=== PATIENT | female | born 1965 | race Caucasian/White ===

== ENCOUNTER 2016-10-16 11:45 | Day surgery (SDC) | payer OTHER ==
[~2016-10-16] VITALS: Ht 146.1 cm; Wt 48.5 kg
[~2016-10-16 11:45] MED LIST: 0.9% Sodium Chloride 1,000 ML IV SCH; DICY10CA56 PO; LACT1CAP65 PO; LISI-571 PO; SERT20OR PO; Sodium Chloride LOK Flush 10 mL Syringe IV PRN; ZOLP5TAB6 PO; fentaNYL-PF 50 mCg/mL 2 mL Inj IVPUSH PRN
[2016-10-16] MEDS ORDERED: MILK1CAP3 PO (12:23)
[2016-10-16] MEDS ORDERED: CYAN50008 PO (12:23)
[2016-10-16 12:24] VITALS: BP 152/101; PULSE 73; RESP 16; O2SAT 99
[2016-10-16 13:13] VITALS: BP 126/76; PULSE 71; RESP 14; O2SAT 98
[2016-10-16 13:24] VITALS: BP 110/68; PULSE 60; RESP 14; O2SAT 99
[2016-10-16 13:49] VITALS: BP 120/79; PULSE 60; RESP 14; O2SAT 98
--- NOTE | 2016-10-16 14:32 | ENDO ---
[address] [address] ENDOSCOPY PROCEDURE PATIENT: COLUMBA HILTON : 1965 MR#: [id number] ADMIT: 10/16/2016 JOB ID: [id number] DATE OF SERVICE: 10/16/2016 TYPE OF OPERATION: Colonoscopy with hot snare polypectomy and biopsy. PREOPERATIVE DIAGNOSIS(ES): Diarrhea. POSTOPERATIVE DIAGNOSIS(ES): 1. There was a 5 mm sigmoid polyp, removed by hot snare polypectomy. 2. There was a 3 mm sigmoid polyp, removed by cold biopsy forceps. ANESTHESIA: Fentanyl 100 mcg, Versed 4 mg IV administered. COMPLICATION: None. ESTIMATED BLOOD LOSS: Minimal. DESCRIPTION OF PROCEDURE: After risks and benefits were explained to the patient, informed consent was obtained. After anesthesia administered, colonoscope was then inserted from the rectum to the cecum. Mucosa carefully examined. Prep of the patient was fair. After the procedure was done, the scope withdrawn and the procedure terminated. The scope was advanced from the rectum to the terminal ileum. Mucosa carefully examined. Prep of the patient was fair. After the procedure was done, the scope was withdrawn and the procedure terminated. FINDINGS: Upon inspection of the anus, no masses, hemorrhoids, ulcers, or fissures that were seen. Throughout the entire examination, there was a 5 mm sigmoid polyp, removed by hot snare polypectomy. Also, a 3 mm sigmoid polyp, removed by cold biopsy forceps. Random biopsies taken from the terminal ileum and random colon. Retroflexion showed small internal hemorrhoids. IMPRESSION: 1. Small internal hemorrhoids. 2. A 5 mm sigmoid polyp, removed by hot snare polypectomy. 3. A 3 mm sigmoid polyp, removed by cold biopsy forceps. RECOMMENDATIONS: Await pathology results. Stool softener as needed. If tubular adenoma, then repeat colonoscopy in five years.
--- NOTE | 2016-10-18 16:15 | PATH ---
SURGICAL PATHOLOGY Attending Physician:Jerardo Kramer MD CASE STATUS: Signed Out PATIENT NAME: COLUMBA HILTON PID: [id number] : 1965 DATE COLLECTED:10/16/2016 19:50 SPECIMEN: 1: Ileum, Biopsy 2: Colon, Biopsy 3: Colon, Polyp CLINICAL HISTORY: 1). TERMINAL ILEUM BIOPSY 2). RANDOM COLON BIOPSY 3). SIGMOID COLON POLYPS FINAL DIAGNOSIS: 1. Terminal Ileum, Biopsy: Portions of small bowel mucosa with no diagnostic abnormality. Negative for active inflammation, dysplasia, and malignancy. 2. Random Colon Biopsies: Superficial portions of colorectal mucosa with occasional prominent lymphoid aggregates and no diagnostic abnormality. Negative for active inflammation, granulomas, dysplasia, and malignancy. 3. Sigmoid Colon, Polyps, Biopsies: Portions of tubular adenoma x2; negative for high-grade dysplasia. ICD10: K63.5 GROSS DESCRIPTION: The specimen is received in three formalin filled containers labeled with the patient's name. 1). The specimen is labeled "terminal ileum" and consists of 2 portions of tissue which aggregate to 0.3 x 0.3 x 0.2 CM. The specimen is entirely submitted in cassette 1A. 2). The specimen is labeled "random colon" and consists of 4 portions of tissue which aggregate to 0.5 x 0.4 x 0.2 CM. The specimen is entirely submitted in cassette 2A. 3). The specimen is labeled "sigmoid colon polyps" and consists of 2 portions of tissue which aggregate to 0.2 x 0.2 x 0.2 CM. The specimen is entirely submitted in cassette 3A. 10/16/2016DC ICD-9 CODES: CPT CODES: 1: 35120 2: 97136 3: 53069 Electronically Signed Out Soco Faith MD [facility] Pathology [facility], [place] [address] Technical component performed at [facility], [address] [place] [address] [address], [place], [address]
== END 2016-10-16 23:59 | disposition home or self-care (01) ==
LOC: END 11:45
PROVIDERS: ATTEND Internal Medicine Gastroenterology
DX: D12.5 Benign neoplasm of sigmoid colon (principal); K64.8 Other hemorrhoids; R19.7 Diarrhea, unspecified; Z79.899 Other long term (current) drug therapy; Z88.5 Allergy status to narcotic agent; Z88.8 Allergy status to other drugs, medicaments and biological substances
CPT/HCPCS: 45380; 45385; 99153; G0500; J2250; J3010; J7030